=== PATIENT | male | born 1935 ===

== ENCOUNTER → 2017-05-26 | Outpatient (CLI) | payer MEDICARE ==
[~2017-05-26] MED LIST: ALPR.5 PO; ASPI81CH PO; ATOR20 PO; ATOR40TA PO; BICA50 PO; CHOL10002 PO; CLON.2 PO; DOCU100 PO; ENOX100I SC; FERR325 PO; FOLI1 PO; FURO40 PO; K-Dur10 MEQ; LEVSOD150 PO; LEVSOD50; LEVSOD75 PO; LOSARTAN-HCTZ1 EAC1 PO; LOSHYD100 PO; Lisinopril2.5 MG PO; Lovastatin20 MG PO; METF500 PO; METO25 PO; OMEP40CA12 PO; PRED5 PO; Potassium Chlo10 ME1 PO; TAMSULOSIN HCL0.4 MG PO; THIA100 PO; Vibramycin100 MG PO; ZYTIGA250 MG PO
== END ==
LOC: LAB SHORT 08:39 → PLD 08:39
DX: C44.629 Squamous cell carcinoma of skin of left upper limb, including shoulder (principal)
CPT/HCPCS: 88305

== ENCOUNTER 2017-06-19 07:45 | Inpatient (IN) | payer MEDICARE ==
[~2017-06-19] VITALS: Ht 180.3 cm; Wt 150.0 kg
[~2017-06-19 07:45] MED LIST changes: -ATOR20 PO; -FERR325 PO; +Ferrous Sulfat325 M2 PO; -LEVSOD75 PO; -METO25 PO; +METO50 PO; -OMEP40CA12 PO; +OMEPRAZOLE MAGN20 MG PO; +POTCHL20ER PO; -Potassium Chlo10 ME1 PO
[2017-06-19 08:34] LABS: BASOPHILS ABSOLUTE AUTO 0.02 K/mm3 (0.00-0.23); BASOPHILS PERCENT AUTO 0 % (0-2); EOSINOPHILS PERCENT AUTO 0 % (0-6); Hematocrit 34.6 % (37.0-53.0); Hemoglobin 11.2 g/dL (13.5-17.5); IMMATURE GRAN ABSOLUTE AUTO 0.09 K/mm3 (0.00-0.10); IMMATURE GRAN PERCENT AUTO 2 % (0-1); LYMPHOCYTES ABSOLUTE AUTO 0.52 K/mm3 (0.84-5.20); LYMPHOCYTES PERCENT AUTO 9 % (21-46); MONOCYTES ABSOLUTE AUTO 0.35 K/mm3 (0.16-1.47); MONOCYTES PERCENT AUTO 6 % (4-13); Mean Corpuscular HGB 33.8 pg (26.0-34.0); Mean Corpuscular HGB Conc 32.4 g/dL (31.5-36.5); Mean Corpuscular Volume 105 fL (80-100); Mean Platelet Volume 9.8 fL (9.1-12.4); NEUTROPHILS ABSOLUTE AUTO 4.72 K/mm3 (1.96-9.15); NEUTROPHILS PERCENT AUTO 83 % (41-73); Platelet Count 114 K/mm3 (150-400); RDW Coefficient Variation 15.9 % (11.7-14.2); Red Blood Cell Count 3.31 M/mm3 (4.30-5.90)
[2017-06-19 08:49] LABS: International Normalized Ratio 1.21; Prothrombin Time Results 12.7 Sec (9.7-11.5)
[2017-06-19 08:55] LABS: Albumin, Blood 3.2 g/dL (3.4-5.0); Albumin/Globulin Ratio 0.9 (0.8-1.8); Bun/Creatinine Ratio 16.8 (12.0-20.0); Calcium, Blood 8.6 mg/dL (8.5-10.1); Creatinine, Blood 1.49 mg/dL (0.60-1.20); Globulin, Blood 3.7 g/dL (2.2-4.0); Potassium, Blood 2.9 mmol/L (3.5-5.5); Total Protein, Blood 6.9 g/dL (6.4-8.2)
[2017-06-19] MEDS ORDERED: CLOP75 PO (15:28)
[2017-06-19] MEDS ORDERED: TAMS.4ER PO (15:29)
[2017-06-19] MEDS ORDERED: Amaryl2 MG PO (15:30)
[2017-06-20 04:51] LABS: Hematocrit 28.7 % (37.0-53.0); Hemoglobin 9.5 g/dL (13.5-17.5); Mean Corpuscular HGB 33.7 pg (26.0-34.0); Mean Corpuscular HGB Conc 33.1 g/dL (31.5-36.5); Mean Platelet Volume 10.1 fL (9.1-12.4); Platelet Count 82 K/mm3 (150-400); RDW Coefficient Variation 15.9 % (11.7-14.2); RDW Standard Deviation 58.9 fL (35.1-46.3); Red Blood Cell Count 2.82 M/mm3 (4.30-5.90); White Blood Cell Count 3.69 K/mm3 (4.00-11.30)
[2017-06-20 04:55] LABS: Mean Corpuscular Volume 102 fL (80-100)
[2017-06-20 05:06] LABS: Calcium, Blood 7.5 mg/dL (8.5-10.1); Creatinine, Blood 3.19 mg/dL (0.60-1.20); Potassium, Blood 4.3 mmol/L (3.5-5.5)
[2017-06-20 05:28] LABS: BAND PERCENT MAN 38 % (0-8); BASOPHILS PERCENT MAN 0 % (0-2); EOSINOPHILS PERCENT MAN 0 % (0-6); LYMPHOCYTES ABSOLUTE MAN 0.29 K/mm3 (0.84-5.20); LYMPHOCYTES PERCENT MAN 8 % (21-46); METAMYELOCYTE ABSOLUTE MAN 0.14 K/mm3 (0.00-0.00); METAMYELOCYTE PERCENT MAN 4 % (0-0); MONOCYTES ABSOLUTE MAN 0.14 K/mm3 (0.16-1.47); MONOCYTES PERCENT MAN 4 % (4-13); MYELOCYTE ABSOLUTE MAN 0.07 K/mm3 (0.00-0.00); MYELOCYTE PERCENT MAN 2 % (0-0); NEUTROPHILS ABSOLUTE MAN 3.02 K/mm3 (1.96-9.15); SEG NEUTROPHILS PERCENT MAN 44 % (41-73); TOTAL CELLS COUNTED 100
[2017-06-20] MEDS ORDERED: PRED5 PO (16:15)
[2017-06-20] MEDS ORDERED: ZYTIGA250 MG PO (16:17)
[2017-06-21 10:34] LABS: BASOPHILS ABSOLUTE AUTO 0.01 K/mm3 (0.00-0.23); BASOPHILS PERCENT AUTO 0 % (0-2); Hematocrit 24.3 % (37.0-53.0); LYMPHOCYTES ABSOLUTE AUTO 0.14 K/mm3 (0.84-5.20); LYMPHOCYTES PERCENT AUTO 6 % (21-46); MONOCYTES ABSOLUTE AUTO 0.26 K/mm3 (0.16-1.47); MONOCYTES PERCENT AUTO 11 % (4-13); Mean Corpuscular HGB 33.3 pg (26.0-34.0); Mean Corpuscular HGB Conc 32.9 g/dL (31.5-36.5); Mean Corpuscular Volume 101 fL (80-100); Mean Platelet Volume 9.7 fL (9.1-12.4); Platelet Count 85 K/mm3 (150-400); RDW Coefficient Variation 16.3 % (11.7-14.2); RDW Standard Deviation 60.5 fL (35.1-46.3); White Blood Cell Count 2.36 K/mm3 (4.00-11.30)
[2017-06-21 10:41] LABS: EOSINOPHILS ABSOLUTE AUTO 0.01 K/mm3 (0.00-0.68); EOSINOPHILS PERCENT AUTO 0 % (0-6); IMMATURE GRAN ABSOLUTE AUTO 0.02 K/mm3 (0.00-0.10); IMMATURE GRAN PERCENT AUTO 1 % (0-1); NEUTROPHILS ABSOLUTE AUTO 1.92 K/mm3 (1.96-9.15); NEUTROPHILS PERCENT AUTO 82 % (41-73)
[2017-06-21 13:38] LABS: Bun/Creatinine Ratio 9.3 (12.0-20.0); Calcium, Blood 7.3 mg/dL (8.5-10.1); Creatinine, Blood 5.27 mg/dL (0.60-1.20); Potassium, Blood 3.9 mmol/L (3.5-5.5)
[2017-06-22 15:34] LABS: Bun/Creatinine Ratio 11.4 (12.0-20.0); Calcium, Blood 7.4 mg/dL (8.5-10.1); Creatinine, Blood 5.6 mg/dL (0.60-1.20); Potassium, Blood 4.3 mmol/L (3.5-5.5)
[2017-06-23 06:04] LABS: Bun/Creatinine Ratio 12.6 (12.0-20.0); Calcium, Blood 7.5 mg/dL (8.5-10.1); Creatinine, Blood 5.8 mg/dL (0.60-1.20); Potassium, Blood 4.2 mmol/L (3.5-5.5)
[2017-06-23 15:47] LABS: Appearance, Urine Clear (Clear); Bilirubin, Urine Neg (Neg); Blood, Urine 4+ (Neg); Color, Urine Yellow (P-Yellow); Glucose Qualitative, Urine Neg (Neg); Ketones, Urine Neg (Neg); Leukocyte Esterase, Urine Neg (Neg); Nitrite, Urine Neg (Neg); Protein, Urine 2+ (Neg); Specific Gravity, Urine 1.015 (1.003-1.022); Urobilinogen, Urine NORM (Normal)
[2017-06-23 16:01] LABS: Hyaline Casts 0-2 /lpf (0-2); Red Blood Cells, Urine 0-2 /hpf (0-2); Squamous Epithelial Cells Not Seen /hpf (Few); White Blood Cells, Urine 0-2 /hpf (0-5)
[2017-06-23 16:02] LABS: Amorphous Light (0-Heavy); Bacteria Rare /hpf
[2017-06-24 05:16] LABS: Hemoglobin 9.1 g/dL (13.5-17.5); Mean Corpuscular HGB 33.1 pg (26.0-34.0); Mean Corpuscular HGB Conc 33.7 g/dL (31.5-36.5); Mean Platelet Volume 10.6 fL (9.1-12.4); Platelet Count 110 K/mm3 (150-400); RDW Coefficient Variation 15.1 % (11.7-14.2); Red Blood Cell Count 2.75 M/mm3 (4.30-5.90); White Blood Cell Count 2.84 K/mm3 (4.00-11.30)
[2017-06-24 05:18] LABS: Mean Corpuscular Volume 98 fL (80-100)
[2017-06-24 05:42] LABS: Alanine Aminotransfer (ALT/SGP 91 U/L (12-78); Albumin, Blood 2.4 g/dL (3.4-5.0); Albumin/Globulin Ratio 0.6 (0.8-1.8); Alk Phos 65 U/L (50-136); Anion Gap 13 mmol/L (6-16); Aspartate Aminotrans (AST/SGOT 193 U/L (12-37); Bilirubin, Total 0.3 mg/dL (0.1-1.0); Blood Urea Nitrogen 79 mg/dL (8-24); Bun/Creatinine Ratio 14.4 (12.0-20.0); CO2, Blood 19 mmol/L (21-32); Calcium, Blood 7.4 mg/dL (8.5-10.1); Chloride, Blood 112 mmol/L (98-108); Creatinine, Blood 5.47 mg/dL (0.60-1.20); Globulin, Blood 3.8 g/dL (2.2-4.0); Glomerular Filtration Rate 11 (60-); Glucose, Blood 111 mg/dL (70-99); Potassium, Blood 3.1 mmol/L (3.5-5.5); Sodium, Blood 144 mmol/L (136-145); Total Protein, Blood 6.2 g/dL (6.4-8.2); Uric Acid, Blood 11.1 mg/dL (3.5-7.2)
[2017-06-24 05:50] LABS: CPK Creatine Kinase 2268 U/L (39-308)
[2017-06-24 05:54] LABS: BASOPHILS ABSOLUTE MAN 0.02 K/mm3 (0.00-0.23); BASOPHILS PERCENT MAN 1 % (0-2); EOSINOPHILS ABSOLUTE MAN 0.02 K/mm3 (0.00-0.68); EOSINOPHILS PERCENT MAN 1 % (0-6); LYMPHOCYTES ABSOLUTE MAN 0.31 K/mm3 (0.84-5.20); LYMPHOCYTES PERCENT MAN 11 % (21-46); MONOCYTES ABSOLUTE MAN 0.05 K/mm3 (0.16-1.47); MONOCYTES PERCENT MAN 2 % (4-13); MYELOCYTE ABSOLUTE MAN 0.05 K/mm3 (0.00-0.00); MYELOCYTE PERCENT MAN 2 % (0-0); NEUTROPHILS ABSOLUTE MAN 2.35 K/mm3 (1.96-9.15); SEG NEUTROPHILS PERCENT MAN 83 % (41-73); TOTAL CELLS COUNTED 100
[2017-06-25 08:03] LABS: BASOPHILS PERCENT AUTO 0 % (0-2); EOSINOPHILS ABSOLUTE AUTO 0.03 K/mm3 (0.00-0.68); EOSINOPHILS PERCENT AUTO 2 % (0-6); Hematocrit 28.6 % (37.0-53.0); Hemoglobin 9.4 g/dL (13.5-17.5); IMMATURE GRAN ABSOLUTE AUTO 0.06 K/mm3 (0.00-0.10); IMMATURE GRAN PERCENT AUTO 3 % (0-1); LYMPHOCYTES ABSOLUTE AUTO 0.23 K/mm3 (0.84-5.20); LYMPHOCYTES PERCENT AUTO 12 % (21-46); MONOCYTES ABSOLUTE AUTO 0.15 K/mm3 (0.16-1.47); MONOCYTES PERCENT AUTO 8 % (4-13); Mean Corpuscular HGB 33.6 pg (26.0-34.0); Mean Corpuscular HGB Conc 32.9 g/dL (31.5-36.5); NEUTROPHILS ABSOLUTE AUTO 1.46 K/mm3 (1.96-9.15); NEUTROPHILS PERCENT AUTO 76 % (41-73); Platelet Count 145 K/mm3 (150-400); RDW Coefficient Variation 15.1 % (11.7-14.2); RDW Standard Deviation 56.5 fL (35.1-46.3); White Blood Cell Count 1.93 K/mm3 (4.00-11.30)
[2017-06-25 08:05] LABS: Mean Corpuscular Volume 102 fL (80-100)
[2017-06-25 08:30] LABS: Albumin, Blood 2.3 g/dL (3.4-5.0); Anion Gap 10 mmol/L (6-16); Blood Urea Nitrogen 69 mg/dL (8-24); Bun/Creatinine Ratio 16.2 (12.0-20.0); CO2, Blood 19 mmol/L (21-32); Calcium, Blood 7.2 mg/dL (8.5-10.1); Chloride, Blood 115 mmol/L (98-108); Creatinine, Blood 4.27 mg/dL (0.60-1.20); Glomerular Filtration Rate 14 (60-); Glucose, Blood 64 mg/dL (70-99); Phosphorus, Blood 3.7 mg/dL (2.5-4.9); Potassium, Blood 3.1 mmol/L (3.5-5.5); Sodium, Blood 144 mmol/L (136-145)
[2017-06-26 05:16] LABS: BASOPHILS ABSOLUTE AUTO 0.01 K/mm3 (0.00-0.23); BASOPHILS PERCENT AUTO 1 % (0-2); Hematocrit 27.7 % (37.0-53.0); Hemoglobin 8.9 g/dL (13.5-17.5); LYMPHOCYTES ABSOLUTE AUTO 0.25 K/mm3 (0.84-5.20); LYMPHOCYTES PERCENT AUTO 14 % (21-46); MONOCYTES ABSOLUTE AUTO 0.12 K/mm3 (0.16-1.47); MONOCYTES PERCENT AUTO 7 % (4-13); Mean Corpuscular HGB 32.4 pg (26.0-34.0); Mean Corpuscular HGB Conc 32.1 g/dL (31.5-36.5); Mean Corpuscular Volume 101 fL (80-100); Mean Platelet Volume 9.8 fL (9.1-12.4); Platelet Count 183 K/mm3 (150-400); RDW Coefficient Variation 15.1 % (11.7-14.2); RDW Standard Deviation 55.5 fL (35.1-46.3); Red Blood Cell Count 2.75 M/mm3 (4.30-5.90); White Blood Cell Count 1.76 K/mm3 (4.00-11.30)
[2017-06-26 05:21] LABS: EOSINOPHILS ABSOLUTE AUTO 0.03 K/mm3 (0.00-0.68); EOSINOPHILS PERCENT AUTO 2 % (0-6); IMMATURE GRAN ABSOLUTE AUTO 0.05 K/mm3 (0.00-0.10); IMMATURE GRAN PERCENT AUTO 3 % (0-1); NEUTROPHILS PERCENT AUTO 74 % (41-73)
[2017-06-26 05:32] LABS: Alanine Aminotransfer (ALT/SGP 53 U/L (12-78); Albumin, Blood 2.3 g/dL (3.4-5.0); Albumin/Globulin Ratio 0.6 (0.8-1.8); Alk Phos 63 U/L (50-136); Anion Gap 9 mmol/L (6-16); Aspartate Aminotrans (AST/SGOT 94 U/L (12-37); Bilirubin, Total 0.3 mg/dL (0.1-1.0); Blood Urea Nitrogen 55 mg/dL (8-24); Bun/Creatinine Ratio 16.6 (12.0-20.0); CO2, Blood 20 mmol/L (21-32); Calcium, Blood 6.9 mg/dL (8.5-10.1); Chloride, Blood 116 mmol/L (98-108); Creatinine, Blood 3.31 mg/dL (0.60-1.20); Globulin, Blood 3.6 g/dL (2.2-4.0); Glomerular Filtration Rate 19 (60-); Glucose, Blood 119 mg/dL (70-99); Magnesium, Blood 1.8 mg/dL (1.6-2.4); Phosphorus, Blood 3.4 mg/dL (2.5-4.9); Potassium, Blood 3.2 mmol/L (3.5-5.5); Sodium, Blood 145 mmol/L (136-145); Total Protein, Blood 5.9 g/dL (6.4-8.2)
[2017-06-27 07:00] LABS: Bun/Creatinine Ratio 16.5 (12.0-20.0); Calcium, Blood 7.2 mg/dL (8.5-10.1); Creatinine, Blood 2.49 mg/dL (0.60-1.20); Potassium, Blood 3.3 mmol/L (3.5-5.5)
[2017-06-28 04:09] LABS: BASOPHILS PERCENT AUTO 0 % (0-2); EOSINOPHILS ABSOLUTE AUTO 0.02 K/mm3 (0.00-0.68); EOSINOPHILS PERCENT AUTO 1 % (0-6); Hematocrit 26.5 % (37.0-53.0); Hemoglobin 8.4 g/dL (13.5-17.5); IMMATURE GRAN ABSOLUTE AUTO 0.05 K/mm3 (0.00-0.10); IMMATURE GRAN PERCENT AUTO 3 % (0-1); LYMPHOCYTES ABSOLUTE AUTO 0.32 K/mm3 (0.84-5.20); LYMPHOCYTES PERCENT AUTO 17 % (21-46); MONOCYTES ABSOLUTE AUTO 0.18 K/mm3 (0.16-1.47); MONOCYTES PERCENT AUTO 9 % (4-13); Mean Corpuscular HGB 32.6 pg (26.0-34.0); Mean Corpuscular HGB Conc 31.7 g/dL (31.5-36.5); Mean Corpuscular Volume 103 fL (80-100); Mean Platelet Volume 9.2 fL (9.1-12.4); NEUTROPHILS ABSOLUTE AUTO 1.34 K/mm3 (1.96-9.15); NEUTROPHILS PERCENT AUTO 70 % (41-73); Platelet Count 211 K/mm3 (150-400); RDW Coefficient Variation 15.1 % (11.7-14.2); Red Blood Cell Count 2.58 M/mm3 (4.30-5.90); White Blood Cell Count 1.91 K/mm3 (4.00-11.30)
[2017-06-28 04:29] LABS: Bun/Creatinine Ratio 15.1 (12.0-20.0); Calcium, Blood 7.1 mg/dL (8.5-10.1); Creatinine, Blood 1.99 mg/dL (0.60-1.20); Potassium, Blood 3.3 mmol/L (3.5-5.5)
[2017-06-28] MEDS ORDERED: AMOX250 PO (13:10)
[2017-06-28] MEDS ORDERED: CLOT10 SS (13:13)
[2017-06-28 17:07] LABS: A/G RATIO 1.1 (0.7-1.7); ALBUMIN 2.9 g/dL (2.9-4.4); ALPHA-1-GLOBULIN 0.3 g/dL (0.0-0.4); ALPHA-2-GLOBULIN 0.8 g/dL (0.4-1.0); BETA GLOBULIN 0.9 g/dL (0.7-1.3); GAMMA GLOBULIN 0.6 g/dL (0.4-1.8); GLOBULIN, TOTAL 2.7 g/dL (2.2-3.9); IMMUNOGLOBULIN A, QN, SERUM 246 mg/dL (61-437); IMMUNOGLOBULIN G, QN, SERUM 544 mg/dL (700-1600); IMMUNOGLOBULIN M, QN, SERUM 27 mg/dL (15-143); M-SPIKE Not Observed g/dL (Not Observed); PROTEIN, TOTAL, SERUM 5.6 g/dL (6.0-8.5)
== END 2017-06-28 14:32 | DRG 871 ==
LOC: DELPENDDIS → ER 07:45 → PCU 07:46 → MEDS 07:46 → PCU 14:01 → MEDS 14:05 → ENPENDDIS 06-22 10:00 → MEDS 06-22 21:12 → ENPENDDIS 06-28 10:51 → MEDS 06-28 14:32
PROVIDERS: Emergency Medicine; Hospitalist; Internal Medicine
DX: A41.9 Sepsis, unspecified organism (principal); J18.9 Pneumonia, unspecified organism; N17.0 Acute kidney failure with tubular necrosis; J96.01 Acute respiratory failure with hypoxia; R65.21 Severe sepsis with septic shock; C61 Malignant neoplasm of prostate; D50.9 Iron deficiency anemia, unspecified; K21.9 Gastro-esophageal reflux disease without esophagitis; N40.1 Benign prostatic hyperplasia with lower urinary tract symptoms; R33.8 Other retention of urine; I25.10 Atherosclerotic heart disease of native coronary artery without angina pectoris; E66.9 Obesity, unspecified; I12.9 Hypertensive chronic kidney disease with stage 1 through stage 4 chronic kidney disease, or unspecified chronic kidney disease; N18.3 Chronic kidney disease, stage 3 (moderate); E11.22 Type 2 diabetes mellitus with diabetic chronic kidney disease
CPT/HCPCS: 36415; 71046; 76770; 80048; 80053; 80069; 81001; 82550; 82784; 82947; 83605; 83735; 84100; 84165; 84550; 85025; 85610; 85730; 86334; 87040; 87081; 87493; 92610; 93005; 93010; 94640; 94760; 96361; 96365; 96375; 97110; 97116; 97163; 97530; 99285; G8978; G8979; G8996; G8997; G8998; J0456; J0696; J1650; J1815; J2405; J2543; J3480; J7030; J7050; J7120

== ENCOUNTER 2017-07-03 16:18 | Inpatient (IN) | payer MEDICARE ==
[~2017-07-03] VITALS: Ht 182.9 cm; Wt 95.9 kg
[~2017-07-03 16:18] MED LIST changes: +AMOX250 PO; +Amaryl2 MG PO; +CLOP75 PO; +CLOT10 SS; -METF500 PO; +METF500C PO; +TAMS.4ER PO
[2017-07-03 17:11] LABS: PCO2 Arterial 31.9 mmHg (35-45); PO2 Arterial 56.3 mmHg (80-100); pH Blood Arterial 7.42 (7.35-7.45)
[2017-07-03 17:27] LABS: Alanine Aminotransfer (ALT/SGP 20 U/L (12-78); Albumin, Blood 2.6 g/dL (3.4-5.0); Albumin/Globulin Ratio 0.7 (0.8-1.8); Alk Phos 66 U/L (50-136); Anion Gap 11 mmol/L (6-16); Aspartate Aminotrans (AST/SGOT 38 U/L (12-37); Bilirubin, Total 0.5 mg/dL (0.1-1.0); Blood Urea Nitrogen 12 mg/dL (8-24); Bun/Creatinine Ratio 11.1 (12.0-20.0); CO2, Blood 21 mmol/L (21-32); Calcium, Blood 7.4 mg/dL (8.5-10.1); Chloride, Blood 116 mmol/L (98-108); Creatinine, Blood 1.08 mg/dL (0.60-1.20); Globulin, Blood 3.7 g/dL (2.2-4.0); Glomerular Filtration Rate >60 (60-); Glucose, Blood 151 mg/dL (70-99); Hematocrit 27.1 % (37.0-53.0); Hemoglobin 8.5 g/dL (13.5-17.5); Mean Corpuscular HGB 32.3 pg (26.0-34.0); Mean Corpuscular HGB Conc 31.4 g/dL (31.5-36.5); Mean Corpuscular Volume 103 fL (80-100); Mean Platelet Volume 9.8 fL (9.1-12.4); Platelet Count 224 K/mm3 (150-400); Potassium, Blood 4.4 mmol/L (3.5-5.5); RDW Coefficient Variation 14.6 % (11.7-14.2); RDW Standard Deviation 55.1 fL (35.1-46.3); Red Blood Cell Count 2.63 M/mm3 (4.30-5.90); Sodium, Blood 148 mmol/L (136-145); Total Protein, Blood 6.3 g/dL (6.4-8.2); White Blood Cell Count 3.88 K/mm3 (4.00-11.30)
[2017-07-03 17:40] LABS: International Normalized Ratio 1.21; Prothrombin Time Results 12.7 Sec (9.7-11.5)
[2017-07-03 17:51] LABS: BAND PERCENT MAN 3 % (0-8); BASOPHILS PERCENT MAN 0 % (0-2); EOSINOPHILS ABSOLUTE MAN 0.03 K/mm3 (0.00-0.68); EOSINOPHILS PERCENT MAN 1 % (0-6); LYMPHOCYTES ABSOLUTE MAN 0.11 K/mm3 (0.84-5.20); LYMPHOCYTES PERCENT MAN 3 % (21-46); MONOCYTES ABSOLUTE MAN 0.03 K/mm3 (0.16-1.47); MONOCYTES PERCENT MAN 1 % (4-13); NEUTROPHILS ABSOLUTE MAN 3.68 K/mm3 (1.96-9.15); SEG NEUTROPHILS PERCENT MAN 92 % (41-73); TOTAL CELLS COUNTED 100
[2017-07-03 23:43] LABS: Source, Urine Catheter
[2017-07-03 23:45] LABS: Bilirubin, Urine Neg (Neg); Blood, Urine 2+ (Neg); Glucose Qualitative, Urine Neg (Neg); Ketones, Urine 1+ (Neg); Leukocyte Esterase, Urine Neg (Neg); Nitrite, Urine Neg (Neg); Protein, Urine 2+ (Neg); Specific Gravity, Urine 1.025 (1.003-1.022); Urobilinogen, Urine NORM (Normal)
[2017-07-03 23:50] LABS: Appearance, Urine Hazy (Clear); Color, Urine Yellow (P-Yellow)
[2017-07-03 23:51] LABS: Amorphous Light (0-Heavy); Bacteria Mod /hpf; Red Blood Cells, Urine 0-2 /hpf (0-2); Squamous Epithelial Cells Not Seen /hpf (Few); White Blood Cells, Urine 0-2 /hpf (0-5)
[2017-07-04 04:41] LABS: BASOPHILS ABSOLUTE AUTO 0.02 K/mm3 (0.00-0.23); BASOPHILS PERCENT AUTO 1 % (0-2); EOSINOPHILS ABSOLUTE AUTO 0.03 K/mm3 (0.00-0.68); EOSINOPHILS PERCENT AUTO 1 % (0-6); Hematocrit 25.6 % (37.0-53.0); IMMATURE GRAN ABSOLUTE AUTO 0.04 K/mm3 (0.00-0.10); IMMATURE GRAN PERCENT AUTO 1 % (0-1); LYMPHOCYTES ABSOLUTE AUTO 0.48 K/mm3 (0.84-5.20); LYMPHOCYTES PERCENT AUTO 17 % (21-46); MONOCYTES ABSOLUTE AUTO 0.27 K/mm3 (0.16-1.47); MONOCYTES PERCENT AUTO 10 % (4-13); Mean Corpuscular HGB Conc 31.3 g/dL (31.5-36.5); Mean Corpuscular Volume 102 fL (80-100); Mean Platelet Volume 9.9 fL (9.1-12.4); NEUTROPHILS ABSOLUTE AUTO 1.95 K/mm3 (1.96-9.15); NEUTROPHILS PERCENT AUTO 70 % (41-73); Platelet Count 206 K/mm3 (150-400); RDW Coefficient Variation 14.9 % (11.7-14.2); RDW Standard Deviation 56.2 fL (35.1-46.3); White Blood Cell Count 2.79 K/mm3 (4.00-11.30)
[2017-07-04 05:11] LABS: Anion Gap 8 mmol/L (6-16); Blood Urea Nitrogen 11 mg/dL (8-24); Bun/Creatinine Ratio 10.4 (12.0-20.0); CHOL/HDL RATIO 2.4; CO2, Blood 21 mmol/L (21-32); Calcium, Blood 7.3 mg/dL (8.5-10.1); Chloride, Blood 118 mmol/L (98-108); Cholesterol 98 mg/dL (50-200); Creatinine, Blood 1.06 mg/dL (0.60-1.20); Glomerular Filtration Rate >60 (60-); Glucose, Blood 87 mg/dL (70-99); HDL Cholesterol 40 mg/dL (>39); LDL/HDL RATIO 0.7; Low Density Lipoprotein Chol 29 mg/dL (0-110); Potassium, Blood 3.9 mmol/L (3.5-5.5); Sodium, Blood 147 mmol/L (136-145); Triglycerides 144 mg/dL (30-160); Very Low Density Lipoprot Chol 28 mg/dL (6-32)
[2017-07-05 05:14] LABS: Hematocrit 25.2 % (37.0-53.0); Mean Corpuscular HGB 31.9 pg (26.0-34.0); Mean Corpuscular HGB Conc 31.7 g/dL (31.5-36.5); Mean Corpuscular Volume 100 fL (80-100); Mean Platelet Volume 9.8 fL (9.1-12.4); Platelet Count 202 K/mm3 (150-400); RDW Coefficient Variation 14.6 % (11.7-14.2); RDW Standard Deviation 53.2 fL (35.1-46.3); Red Blood Cell Count 2.51 M/mm3 (4.30-5.90); White Blood Cell Count 3.17 K/mm3 (4.00-11.30)
[2017-07-05 05:30] LABS: Anion Gap 9 mmol/L (6-16); Blood Urea Nitrogen 12 mg/dL (8-24); Bun/Creatinine Ratio 9.8 (12.0-20.0); CO2, Blood 24 mmol/L (21-32); Calcium, Blood 7.5 mg/dL (8.5-10.1); Chloride, Blood 112 mmol/L (98-108); Creatinine, Blood 1.22 mg/dL (0.60-1.20); Glomerular Filtration Rate >60 (60-); Glucose, Blood 86 mg/dL (70-99); Magnesium, Blood 1.6 mg/dL (1.6-2.4); Potassium, Blood 3.2 mmol/L (3.5-5.5); Sodium, Blood 145 mmol/L (136-145)
[2017-07-05 21:18] LABS: Glucose, Blood 135 mg/dL (70-99)
[2017-07-06 05:21] LABS: Anion Gap 10 mmol/L (6-16); Blood Urea Nitrogen 11 mg/dL (8-24); Bun/Creatinine Ratio 9.3 (12.0-20.0); CO2, Blood 24 mmol/L (21-32); Calcium, Blood 7.5 mg/dL (8.5-10.1); Chloride, Blood 106 mmol/L (98-108); Creatinine, Blood 1.18 mg/dL (0.60-1.20); Glomerular Filtration Rate >60 (60-); Glucose, Blood 101 mg/dL (70-99); Potassium, Blood 3.2 mmol/L (3.5-5.5); Sodium, Blood 140 mmol/L (136-145)
[2017-07-06] MEDS ORDERED: METO25ER PO (12:19)
[2017-07-06] MEDS ORDERED: PANT40 PO (12:23)
[2017-07-06] MEDS ORDERED: ASPI81CH PO (12:24)
[2017-07-06] MEDS ORDERED: DOCU100 PO (12:24)
[2017-07-06] MEDS ORDERED: INSU100I6 (12:25)
[2017-07-06] MEDS ORDERED: LEVO750 PO (12:26)
[2017-07-06] MEDS ORDERED: SPIR25 PO (12:26)
[2017-07-06] MEDS ORDERED: LOSA25 PO (12:26)
[2017-07-06] MEDS ORDERED: MAGOXI400 PO (12:26)
[2017-07-06] MEDS ORDERED: TORSE20 PO (12:27)
== END 2017-07-06 16:59 | disposition home health service (06) | DRG 871 ==
LOC: ER 16:18 → MEDS 18:14 → ENPENDDIS 07-06 12:00 → MEDS 07-06 16:59
PROVIDERS: Family Medicine; Internal Medicine; Internal Medicine Cardiovascular Disease; Physician Assistant
DX: A41.9 Sepsis, unspecified organism (principal); J18.9 Pneumonia, unspecified organism; G93.41 Metabolic encephalopathy; I50.23 Acute on chronic systolic (congestive) heart failure; J96.01 Acute respiratory failure with hypoxia; E87.0 Hyperosmolality and hypernatremia; M62.82 Rhabdomyolysis; R65.20 Severe sepsis without septic shock; I11.0 Hypertensive heart disease with heart failure; I25.5 Ischemic cardiomyopathy; E11.9 Type 2 diabetes mellitus without complications; C61 Malignant neoplasm of prostate; D64.9 Anemia, unspecified; I25.10 Atherosclerotic heart disease of native coronary artery without angina pectoris; I34.0 Nonrheumatic mitral (valve) insufficiency; E78.5 Hyperlipidemia, unspecified; E03.9 Hypothyroidism, unspecified; Z79.84 Long term (current) use of oral hypoglycemic drugs; Z79.02 Long term (current) use of antithrombotics/antiplatelets; Z79.52 Long term (current) use of systemic steroids; Z79.899 Other long term (current) drug therapy; Z87.891 Personal history of nicotine dependence; Z86.718 Personal history of other venous thrombosis and embolism; I25.2 Old myocardial infarction; Z95.5 Presence of coronary angioplasty implant and graft
CPT/HCPCS: 36415; 36600; 51702; 70450; 71045; 80048; 80053; 80061; 81001; 82803; 82947; 83605; 83735; 83880; 84484; 85025; 85027; 85610; 87040; 87086; 93005; 93010; 93306; 96374; 97116; 97162; 97530; 99285; C9113; G8978; G8979; G8980; J0713; J1650; J1940; J1956; J2310; J2405; J3475; J7030; J7070

== ENCOUNTER 2017-07-09 19:16 | Inpatient (IN) | payer MEDICARE ==
[~2017-07-09] VITALS: Ht 180.3 cm; Wt 92.3 kg
[~2017-07-09 19:16] MED LIST changes: +INSU100I6; +LEVO750 PO; +LOSA25 PO; +MAGOXI400 PO; +METO25ER PO; +PANT40 PO; +SPIR25 PO; +TORSE20 PO
[2017-07-09 20:04] LABS: BASOPHILS ABSOLUTE AUTO 0.01 K/mm3 (0.00-0.23); BASOPHILS PERCENT AUTO 0 % (0-2); EOSINOPHILS ABSOLUTE AUTO 0.04 K/mm3 (0.00-0.68); EOSINOPHILS PERCENT AUTO 1 % (0-6); Hematocrit 28.4 % (37.0-53.0); Hemoglobin 9.2 g/dL (13.5-17.5); IMMATURE GRAN ABSOLUTE AUTO 0.06 K/mm3 (0.00-0.10); IMMATURE GRAN PERCENT AUTO 2 % (0-1); LYMPHOCYTES ABSOLUTE AUTO 0.34 K/mm3 (0.84-5.20); LYMPHOCYTES PERCENT AUTO 12 % (21-46); MONOCYTES ABSOLUTE AUTO 0.22 K/mm3 (0.16-1.47); MONOCYTES PERCENT AUTO 8 % (4-13); Mean Corpuscular HGB 31.7 pg (26.0-34.0); Mean Corpuscular HGB Conc 32.4 g/dL (31.5-36.5); NEUTROPHILS ABSOLUTE AUTO 2.25 K/mm3 (1.96-9.15); NEUTROPHILS PERCENT AUTO 77 % (41-73); RDW Coefficient Variation 14.3 % (11.7-14.2); RDW Standard Deviation 51.8 fL (35.1-46.3); White Blood Cell Count 2.92 K/mm3 (4.00-11.30)
[2017-07-09 20:06] LABS: Mean Corpuscular Volume 98 fL (80-100); Mean Platelet Volume 10.2 fL (9.1-12.4); Platelet Count 160 K/mm3 (150-400)
[2017-07-09 20:17] LABS: Albumin, Blood 3.2 g/dL (3.4-5.0); Albumin/Globulin Ratio 0.8 (0.8-1.8); Bilirubin, Total 0.3 mg/dL (0.1-1.0); Bun/Creatinine Ratio 12.2 (12.0-20.0); Calcium, Blood 8.5 mg/dL (8.5-10.1); Creatinine, Blood 1.23 mg/dL (0.60-1.20); Potassium, Blood 4.1 mmol/L (3.5-5.5); Total Protein, Blood 7.2 g/dL (6.4-8.2)
[2017-07-09 21:13] LABS: Source, Urine Clean Catch
[2017-07-09 21:19] LABS: Appearance, Urine Clear (Clear); Bilirubin, Urine Neg (Neg); Blood, Urine 3+ (Neg); Color, Urine Yellow (P-Yellow); Glucose Qualitative, Urine Neg (Neg); Ketones, Urine Neg (Neg); Leukocyte Esterase, Urine 1+ (Neg); Nitrite, Urine Neg (Neg); Protein, Urine 2+ (Neg); Specific Gravity, Urine 1.015 (1.003-1.022); Urobilinogen, Urine NORM (Normal)
[2017-07-09 21:28] LABS: Amorphous Light (0-Heavy); Bacteria Few /hpf; Granular Casts 0-2 /lpf (0); Red Blood Cells, Urine 0-2 /hpf (0-2); Squamous Epithelial Cells Few /hpf (Few)
[2017-07-10 05:22] LABS: Anion Gap 9 mmol/L (6-16); Blood Urea Nitrogen 13 mg/dL (8-24); Bun/Creatinine Ratio 11.4 (12.0-20.0); CO2, Blood 25 mmol/L (21-32); Chloride, Blood 109 mmol/L (98-108); Creatinine, Blood 1.14 mg/dL (0.60-1.20); Glomerular Filtration Rate >60 (60-); Glucose, Blood 64 mg/dL (70-99); Potassium, Blood 3.9 mmol/L (3.5-5.5); Sodium, Blood 143 mmol/L (136-145)
[2017-07-11] MEDS ORDERED: INSDET100 SC (10:27)
[2017-07-11] MEDS ORDERED: PROM25 PO (12:07)
== END 2017-07-11 12:49 | disposition home or self-care (01) | DRG 637 ==
LOC: ER 19:16 → PCU 19:17 → MEDS 23:12 → PCU 23:36 → MEDS 07-10 18:24 → ENPENDDIS 07-11 09:00 → MEDS 07-11 12:49
PROVIDERS: Emergency Medicine; Internal Medicine
DX: E11.649 Type 2 diabetes mellitus with hypoglycemia without coma (principal); J18.9 Pneumonia, unspecified organism; I50.22 Chronic systolic (congestive) heart failure; I11.0 Hypertensive heart disease with heart failure; Z86.718 Personal history of other venous thrombosis and embolism; E03.9 Hypothyroidism, unspecified; E78.5 Hyperlipidemia, unspecified; I25.10 Atherosclerotic heart disease of native coronary artery without angina pectoris; I25.2 Old myocardial infarction; T37.8X5A Adverse effect of other specified systemic anti-infectives and antiparasitics, initial encounter; T38.3X5A Adverse effect of insulin and oral hypoglycemic [antidiabetic] drugs, initial encounter
CPT/HCPCS: 36415; 71046; 80048; 80053; 81001; 82947; 83605; 85025; 87040; 87077; 87086; 87186; 93005; 93010; 99285; J1650; J1956; J2543; J7030

== ENCOUNTER → 2017-08-31 | Outpatient (CLI) | payer MEDICARE, SELFPAY ==
[~2017-08-31] MED LIST changes: +INSDET100 SC; +PROM25 PO
== END | disposition home or self-care (01) ==
LOC: PLD 08:24 → LAB SHORT 08:24
DX: D04.61 Carcinoma in situ of skin of right upper limb, including shoulder (principal)
CPT/HCPCS: 88305

== ENCOUNTER → 2017-11-09 | Outpatient (CLI) | payer MEDICARE, OTHER, SELFPAY | END | disposition home or self-care (01) | LOC: PLD 14:44 → LAB SHORT 14:44 | DX: C44.629 Squamous cell carcinoma of skin of left upper limb, including shoulder (principal) | CPT/HCPCS: 88305 ==

== ENCOUNTER → 2018-05-17 | Outpatient (CLI) | payer MEDICARE, OTHER | END | disposition home or self-care (01) | LOC: PLD 14:00 → LAB SHORT 14:00 | DX: D04.62 Carcinoma in situ of skin of left upper limb, including shoulder (principal); D04.61 Carcinoma in situ of skin of right upper limb, including shoulder; C44.529 Squamous cell carcinoma of skin of other part of trunk | CPT/HCPCS: 88305 ==

== ENCOUNTER → 2018-06-23 | Outpatient (CLI) | payer MEDICARE, OTHER | END | disposition home or self-care (01) | LOC: LAB SHORT 08:32 → PLD 08:32 | DX: D04.62 Carcinoma in situ of skin of left upper limb, including shoulder (principal) | CPT/HCPCS: 88305 ==

== ENCOUNTER 2018-08-21 11:05 | Emergency (ER) | payer MEDICARE, OTHER ==
[~2018-08-21] VITALS: Ht 195.6 cm; Wt 75.8 kg
[2018-08-21 11:33] LABS: BASOPHILS ABSOLUTE AUTO 0.02 K/mm3 (0.00-0.23); BASOPHILS PERCENT AUTO 1 % (0-2); EOSINOPHILS ABSOLUTE AUTO 0.08 K/mm3 (0.00-0.68); EOSINOPHILS PERCENT AUTO 2 % (0-6); Hematocrit 34.9 % (37.0-53.0); Hemoglobin 11.1 g/dL (13.5-17.5); IMMATURE GRAN ABSOLUTE AUTO 0.01 K/mm3 (0.00-0.10); IMMATURE GRAN PERCENT AUTO 0 % (0-1); LYMPHOCYTES ABSOLUTE AUTO 0.72 K/mm3 (0.84-5.20); LYMPHOCYTES PERCENT AUTO 16 % (21-46); MONOCYTES ABSOLUTE AUTO 0.32 K/mm3 (0.16-1.47); MONOCYTES PERCENT AUTO 7 % (4-13); Mean Corpuscular HGB 27.6 pg (26.0-34.0); Mean Corpuscular HGB Conc 31.8 g/dL (31.5-36.5); Mean Corpuscular Volume 87 fL (80-100); Mean Platelet Volume 9.4 fL (9.1-12.4); NEUTROPHILS ABSOLUTE AUTO 3.23 K/mm3 (1.96-9.15); NEUTROPHILS PERCENT AUTO 74 % (41-73); Platelet Count 213 K/mm3 (150-400); RDW Coefficient Variation 13.3 % (11.7-14.2); RDW Standard Deviation 42.3 fL (35.1-46.3); Red Blood Cell Count 4.02 M/mm3 (4.30-5.90); White Blood Cell Count 4.38 K/mm3 (4.00-11.30)
[2018-08-21 12:09] LABS: Alanine Aminotransfer (ALT/SGP <6 U/L (12-78); Albumin, Blood 3.4 g/dL (3.4-5.0); Albumin/Globulin Ratio 0.9 (0.8-1.8); Alk Phos 103 U/L (50-136); Anion Gap 7 mmol/L (6-16); Aspartate Aminotrans (AST/SGOT 11 U/L (12-37); Bilirubin, Total 0.5 mg/dL (0.1-1.0); Blood Urea Nitrogen 16 mg/dL (8-24); Bun/Creatinine Ratio 20.3 (12.0-20.0); CO2, Blood 26 mmol/L (21-32); Calcium, Blood 8.6 mg/dL (8.5-10.1); Chloride, Blood 106 mmol/L (98-108); Creatinine, Blood 0.79 mg/dL (0.60-1.20); Globulin, Blood 3.8 g/dL (2.2-4.0); Glomerular Filtration Rate >60 (60-); Glucose, Blood 122 mg/dL (70-99); Potassium, Blood 3.8 mmol/L (3.5-5.5); Sodium, Blood 139 mmol/L (136-145); Total Protein, Blood 7.2 g/dL (6.4-8.2)
[2018-08-21] MEDS ORDERED: ASCO500 PO (12:14)
[2018-08-21] MEDS ORDERED: FERSU300 PO (12:15)
[2018-08-21] MEDS ORDERED: CARV3.125 PO (12:15)
[2018-08-21] MEDS ORDERED: DOXY100 PO (12:16)
[2018-08-21] MEDS ORDERED: Mupirocin22 GM TD (12:21)
[2018-08-21] MEDS ORDERED: CHLORHEXIDINE FL1 ML TD (12:23)
[2018-08-21] MEDS ORDERED: OXYC5 PO (12:23)
[2018-08-21] MEDS ORDERED: ONDA4ODT MM (12:23)
[2018-08-21] MEDS ORDERED: Augmentin 875-1 EACH PO ×2 (14:13→14:34)
== END 2018-08-21 14:41 | disposition home or self-care (01) ==
LOC: ER 11:05
PROVIDERS: Emergency Medicine
DX: K57.32 Diverticulitis of large intestine without perforation or abscess without bleeding (principal); Z79.899 Other long term (current) drug therapy; Z79.84 Long term (current) use of oral hypoglycemic drugs; Z79.52 Long term (current) use of systemic steroids; Z79.82 Long term (current) use of aspirin; Z79.4 Long term (current) use of insulin
CPT/HCPCS: 36415; 74177; 80053; 83690; 85025; 96361-59; 96374-59; 96375-59; 99284-25; J1170; J2405; J7030; Q9967

== ENCOUNTER → 2018-10-11 | Outpatient (CLI) | payer MEDICARE, OTHER ==
[~2018-10-11] MED LIST changes: +ASCO500 PO; +ATORVASTATIN CA40 MG PO; +AZIT250 PO; +Augmentin 875-1 EACH PO; +CARV3.125 PO; +CHLORHEXIDINE FL1 ML TD; +DOXY100 PO; +EUTHYROX150 MCG PO; +FERSU300 PO; +FURO20; +LISI5 PO; +METF500 PO; +MIRALAX17 GM PO; +Mupirocin22 GM TD; +ONDA4 PO; +ONDA4ODT MM; +OXYC5 PO; +Potassium Chlo20 ME1 PO; +XTANDI40 MG PO
== END | disposition home or self-care (01) ==
LOC: PLD 14:23 → LAB SHORT 14:23
DX: C44.529 Squamous cell carcinoma of skin of other part of trunk (principal)
CPT/HCPCS: 88305

== ENCOUNTER 2018-11-01 14:19 | Inpatient (IN) | payer MEDICARE, OTHER ==
[~2018-11-01] VITALS: Ht 172.7 cm; Wt 71.5 kg
[~2018-11-01 14:19] MED LIST changes: -ATORVASTATIN CA40 MG PO; -AZIT250 PO; -EUTHYROX150 MCG PO; -FURO20; -LISI5 PO; -METF500 PO; -MIRALAX17 GM PO; -ONDA4 PO; -Potassium Chlo20 ME1 PO; -XTANDI40 MG PO
[2018-11-01] MEDS ORDERED: FURO20 (15:17)
[2018-11-01] MEDS ORDERED: XTANDI40 MG PO (15:17)
[2018-11-01] MEDS ORDERED: ATORVASTATIN CA40 MG PO (15:17)
[2018-11-01] MEDS ORDERED: TAMS.4ER PO (15:17)
[2018-11-01] MEDS ORDERED: Potassium Chlo20 ME1 PO (15:18)
[2018-11-01] MEDS ORDERED: EUTHYROX150 MCG PO (15:18)
[2018-11-01 15:27] LABS: BASOPHILS ABSOLUTE AUTO 0.02 K/mm3 (0.00-0.23); BASOPHILS PERCENT AUTO 1 % (0-2); EOSINOPHILS ABSOLUTE AUTO 0.05 K/mm3 (0.00-0.68); EOSINOPHILS PERCENT AUTO 2 % (0-6); Hematocrit 32.5 % (37.0-53.0); Hemoglobin 10.2 g/dL (13.5-17.5); IMMATURE GRAN ABSOLUTE AUTO 0.01 K/mm3 (0.00-0.10); IMMATURE GRAN PERCENT AUTO 0 % (0-1); LYMPHOCYTES ABSOLUTE AUTO 0.57 K/mm3 (0.84-5.20); LYMPHOCYTES PERCENT AUTO 21 % (21-46); MONOCYTES ABSOLUTE AUTO 0.34 K/mm3 (0.16-1.47); MONOCYTES PERCENT AUTO 12 % (4-13); Mean Corpuscular HGB 28.6 pg (26.0-34.0); Mean Corpuscular HGB Conc 31.4 g/dL (31.5-36.5); Mean Corpuscular Volume 91 fL (80-100); Mean Platelet Volume 10.2 fL (9.1-12.4); NEUTROPHILS ABSOLUTE AUTO 1.75 K/mm3 (1.96-9.15); NEUTROPHILS PERCENT AUTO 64 % (41-73); Platelet Count 128 K/mm3 (150-400); RDW Standard Deviation 54.2 fL (35.1-46.3); Red Blood Cell Count 3.57 M/mm3 (4.30-5.90); White Blood Cell Count 2.74 K/mm3 (4.00-11.30)
[2018-11-01 15:40] LABS: Alanine Aminotransfer (ALT/SGP 7 U/L (12-78); Albumin, Blood 3.4 g/dL (3.4-5.0); Albumin/Globulin Ratio 1.1 (0.8-1.8); Alk Phos 88 U/L (50-136); Anion Gap 5 mmol/L (6-16); Aspartate Aminotrans (AST/SGOT 13 U/L (12-37); Bilirubin, Total 0.6 mg/dL (0.1-1.0); Blood Urea Nitrogen 16 mg/dL (8-24); Bun/Creatinine Ratio 26.5 (12.0-20.0); CO2, Blood 23 mmol/L (21-32); Calcium, Blood 8.6 mg/dL (8.5-10.1); Chloride, Blood 115 mmol/L (98-108); Globulin, Blood 3.2 g/dL (2.2-4.0); Glomerular Filtration Rate >60 (60-); Glucose, Blood 113 mg/dL (70-99); Sodium, Blood 143 mmol/L (136-145); Total Protein, Blood 6.6 g/dL (6.4-8.2); Troponin I <0.015 ng/mL (0.000-0.040)
[2018-11-01 15:43] LABS: Source, Urine Clean Catch
[2018-11-01 15:52] LABS: Bilirubin, Urine Neg (Neg); Blood, Urine 1+ (Neg); Glucose Qualitative, Urine Neg (Neg); Ketones, Urine 1+ (Neg); Leukocyte Esterase, Urine 1+ (Neg); Nitrite, Urine Neg (Neg); Protein, Urine 1+ (Neg); Urobilinogen, Urine NORM (Normal)
[2018-11-01 15:57] LABS: Appearance, Urine Clear (Clear); Color, Urine Yellow (P-Yellow)
[2018-11-01 15:58] LABS: Bacteria Few /hpf; Squamous Epithelial Cells Few /hpf (Few)
[2018-11-01] MEDS ORDERED: METF500 PO (20:24)
[2018-11-01] MEDS ORDERED: ONDA4 PO (20:24)
[2018-11-01] MEDS ORDERED: DOCU100 PO (20:24)
[2018-11-01] MEDS ORDERED: CARV3.125 PO (20:24)
[2018-11-01] MEDS ORDERED: OXYC5 PO (20:25)
[2018-11-01] MEDS ORDERED: ASCO500 PO (20:25)
[2018-11-01] MEDS ORDERED: FERSU300 PO (20:26)
[2018-11-02 01:08] LABS: Adenovirus Not Detected (NOT DETECT); Bordetella pertussis Not Detected (NOT DETECT); Chlamydophila pneumoniae Not Detected (NOT DETECT); Coronavirus 229E Not Detected (NOT DETECT); Coronavirus HKU1 Not Detected (NOT DETECT); Coronavirus NL63 Not Detected (NOT DETECT); Coronavirus OC43 Not Detected (NOT DETECT); Human Metapneumovirus Not Detected (NOT DETECT); Human Rhinovirus/Enterovirus Not Detected (NOT DETECT); Influenza A Not Detected (NOT DETECT); Influenza A/2009-H1 Not Detected (NOT DETECT); Influenza A/H1 Not Detected (NOT DETECT); Influenza A/H3 Not Detected (NOT DETECT); Influenza B Not Detected (NOT DETECT); Mycoplasma pneumoniae Not Detected (NOT DETECT); Parainfluenza Virus 1 Not Detected (NOT DETECT); Parainfluenza Virus 2 Not Detected (NOT DETECT); Parainfluenza Virus 3 Not Detected (NOT DETECT); Parainfluenza Virus 4 Not Detected (NOT DETECT); Respiratory Syncytial Virus Not Detected (NOT DETECT)
--- NOTE | 2018-11-02 03:58 | NUR ---
SHIFT SUMMARY PT ARRIVED TO THE FLOOR WITHOUT INCIDENT VIA WHEELCHAIR. PT ABLE TO AMBULATE TO THE BED A STANDBY ASSIST. NO COMPLAINTS OF PAIN OR SOB DURING THE SHIFT. PT ALERT AND ORIENTED. NS RUNNING ORDERED. NO OTHER COMPLAINTS AT THIS TIME, WILL CONTINUE TO MONITOR.
[2018-11-02 04:25] LABS: Hematocrit 30.1 % (37.0-53.0); Hemoglobin 9.6 g/dL (13.5-17.5); Mean Corpuscular HGB 28.9 pg (26.0-34.0); Mean Corpuscular HGB Conc 31.9 g/dL (31.5-36.5); Mean Corpuscular Volume 91 fL (80-100); Platelet Count 109 K/mm3 (150-400); RDW Standard Deviation 53.4 fL (35.1-46.3); Red Blood Cell Count 3.32 M/mm3 (4.30-5.90); White Blood Cell Count 2.69 K/mm3 (4.00-11.30)
[2018-11-02 04:51] LABS: Alanine Aminotransfer (ALT/SGP <6 U/L (12-78); Albumin, Blood 3.1 g/dL (3.4-5.0); Albumin/Globulin Ratio 1.1 (0.8-1.8); Alk Phos 78 U/L (50-136); Anion Gap 8 mmol/L (6-16); Aspartate Aminotrans (AST/SGOT 8 U/L (12-37); Bilirubin, Total 0.6 mg/dL (0.1-1.0); Blood Urea Nitrogen 13 mg/dL (8-24); Bun/Creatinine Ratio 20.2 (12.0-20.0); CO2, Blood 22 mmol/L (21-32); Calcium, Blood 8.1 mg/dL (8.5-10.1); Chloride, Blood 114 mmol/L (98-108); Creatinine, Blood 0.64 mg/dL (0.60-1.20); Globulin, Blood 2.9 g/dL (2.2-4.0); Glomerular Filtration Rate >60 (60-); Glucose, Blood 123 mg/dL (70-99); Potassium, Blood 3.6 mmol/L (3.5-5.5); Sodium, Blood 144 mmol/L (136-145)
--- NOTE | 2018-11-02 18:43 | NUR ---
PT. BACK IN BED AFTER EATING DINNER AND GOING TO BR. HAS DENIED N/V/PAIN T/O THIS SHIFT. GOT DIETARY TO ADD ENSURE TO HIS MEALS, HAS NO LOWER TEETH. PT. TAKES MEDS WITH VANILLA ENSURE ONLY TAKING THEM WITH WATER CAUSES NAUSEA. NO NOTEABLE CHAANGES THIS SHIFT.
--- NOTE | 2018-11-03 07:00 | NUR ---
ASSUMED CARE OF PT- BEDSIDE REPORT COMPLETED PT A LITTLE QAGAN TAYAGUNGIN AND DID NOT WAKE TO STAFF VOICES. PER REPORT PT ALERT AND ORIENTED. 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 ON ASSESSMENT PT DENIES PAIN, WILL CTM.
--- NOTE | 2018-11-03 07:32 | NUR ---
SHIFT SUMMARY PT ALERT, ORIENTED, AND 1X ASSIST. PT HAD NO COMPLAINTS OF SOB. PAIN MEDICATION GIVEN PER APR. PT HAD GOOD URINE OUTPUT THIS SHIFT, THOUGH URINE CONTINUES TO BE MALODOROUS. NO OTHER COMPLAINTS AT THIS TIME. WILL CONTINUE TO MONITOR.
--- NOTE | 2018-11-03 18:25 | NUR ---
SHIFT SUMMARY- PT CONTINUES ON IV ABX AT THIS TIME, PT ASKED ABOUT DISCHARGE MULTIPLE TIMES T/O THE SHIFT NO PLAN TO DC WAS MENTIONED BY DR GONZALES. PT ALERT AND ORIENTED ONE PERSON SBA TO THE BATHROOM. PT CALLS APPROPRIATELY, NO ACUTE CHANGES T/O THE SHIFT.
--- NOTE | 2018-11-04 03:03 | NUR ---
SHIFT SUMMARY PT IS ALERT, ORIENTED, AND STANDBY ASSIST. PT RECIEVED ORDERED PAIN MEDS PER APR. NO COMPLAINTS OF SOB. LUNG SOUNDS CONTINUE TO BE DIMINISHED IN THE BASES. PT'S URINE IS MALODEROUS ALSO. CONTACT PRECAUTIONS MAINTAINED. NO OTHER COMPLAINTS FROM PT AT THIS TIME. WILL CONTINUE TO MONITOR.
[2018-11-04 04:55] LABS: BASOPHILS ABSOLUTE AUTO 0.02 K/mm3 (0.00-0.23); BASOPHILS PERCENT AUTO 1 % (0-2); EOSINOPHILS ABSOLUTE AUTO 0.08 K/mm3 (0.00-0.68); EOSINOPHILS PERCENT AUTO 3 % (0-6); Hematocrit 29.3 % (37.0-53.0); Hemoglobin 9.2 g/dL (13.5-17.5); IMMATURE GRAN ABSOLUTE AUTO 0.01 K/mm3 (0.00-0.10); IMMATURE GRAN PERCENT AUTO 0 % (0-1); LYMPHOCYTES ABSOLUTE AUTO 0.49 K/mm3 (0.84-5.20); LYMPHOCYTES PERCENT AUTO 17 % (21-46); MONOCYTES ABSOLUTE AUTO 0.29 K/mm3 (0.16-1.47); MONOCYTES PERCENT AUTO 10 % (4-13); Mean Corpuscular HGB 27.9 pg (26.0-34.0); Mean Corpuscular HGB Conc 31.4 g/dL (31.5-36.5); Mean Corpuscular Volume 89 fL (80-100); Mean Platelet Volume 9.8 fL (9.1-12.4); NEUTROPHILS ABSOLUTE AUTO 1.92 K/mm3 (1.96-9.15); NEUTROPHILS PERCENT AUTO 68 % (41-73); Platelet Count 106 K/mm3 (150-400); RDW Coefficient Variation 16.3 % (11.7-14.2); RDW Standard Deviation 53.1 fL (35.1-46.3); White Blood Cell Count 2.81 K/mm3 (4.00-11.30)
[2018-11-04 05:20] LABS: Alanine Aminotransfer (ALT/SGP 8 U/L (12-78); Alk Phos 80 U/L (50-136); Anion Gap 7 mmol/L (6-16); Aspartate Aminotrans (AST/SGOT 16 U/L (12-37); Bilirubin, Total 0.4 mg/dL (0.1-1.0); Blood Urea Nitrogen 18 mg/dL (8-24); Bun/Creatinine Ratio 26.4 (12.0-20.0); CO2, Blood 23 mmol/L (21-32); Calcium, Blood 8.5 mg/dL (8.5-10.1); Chloride, Blood 114 mmol/L (98-108); Creatinine, Blood 0.68 mg/dL (0.60-1.20); Globulin, Blood 2.9 g/dL (2.2-4.0); Glomerular Filtration Rate >60 (60-); Glucose, Blood 125 mg/dL (70-99); Sodium, Blood 144 mmol/L (136-145); Total Protein, Blood 5.9 g/dL (6.4-8.2)
[2018-11-04] MEDS ORDERED: AZIT250 PO (17:07)
--- NOTE | 2018-11-04 18:30 | NUR ---
SHIFT SUMMARY PT SITTING UP TO EOB, DURING SHIFT REPORT. PLEASANT, BUT APPEARING WEAK. REQUESTED ASSIST TO BTHRM. SBA WITH FWW. ADMITTED FOR LLL PNM AND UTI. 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 PT ATTEMPTED TO EAT BREAKFAST BUT SOON C/O NAUSEA; MEDICATED WITH ZOFRAN PER EMAR. PT REPORTED IT EFFECTIVE. PT REPORTED THAT SOMETIMES HE IS ABLE TO EAT W/O DIFFICUTLY AND OTHER TIMES CANNOT TOLERATE. REPORTS WT LOSS. PT ABLE TO WORK WITH PT AND WALK IN HALLS. PT THEN C/O BLOATING AND "NOT FEELING WELL TODAY", C/O CONSTIPATION; BOWEL CARE GIVEN. PT OFFERED MOM, BUT DECLINED. SOON ASSISTED TO BTHRM HAVING LRG HARD FORMED STOOL. PT FELT MUCH BETTER AND DENIED ANY FURTHER C/O NAUSEA. DR GONZALES IN TO SEE PT. D/C ORDERS GIVEN. O/T ASSISTED PT WITH GETTING DRESSED. PT'S SON TO AND ASSISTED PT HOME. D/C INSTRUCTIONS GIVEN WITH [facility]. PT VERBALIZED UNDERSTANDING. ASSISTED OUT TO CAR BY COMPUTER PROCESSING SCHEDULER VIA W/C.
== END 2018-11-04 17:25 | disposition home or self-care (01) | DRG 194 ==
LOC: ER 14:19 → MEDS 20:28
PROVIDERS: Internal Medicine; Physician Assistant; ADMIT Internal Medicine
DX: J18.1 Lobar pneumonia, unspecified organism (principal); C79.51 Secondary malignant neoplasm of bone; I50.22 Chronic systolic (congestive) heart failure; I25.10 Atherosclerotic heart disease of native coronary artery without angina pectoris; I25.2 Old myocardial infarction; E78.5 Hyperlipidemia, unspecified; E03.9 Hypothyroidism, unspecified; E86.0 Dehydration; C61 Malignant neoplasm of prostate; Z86.718 Personal history of other venous thrombosis and embolism; Z66 Do not resuscitate; E11.649 Type 2 diabetes mellitus with hypoglycemia without coma; R26.89 Other abnormalities of gait and mobility; K59.00 Constipation, unspecified
CPT/HCPCS: 0099U; 36415; 70450; 71046; 74176; 80053; 81001; 82947; 83605; 83880; 84484; 85025; 85027; 87040; 87077; 87086; 87186; 93005; 93010; 93971; 94760; 96365; 96367; 97110; 97116; 97162; 97166; 97530; 97535; 99285-25; J0456; J0696; J1650; J2405; J7030; J7050

== ENCOUNTER 2018-11-07 07:54 | Inpatient (IN) | payer OTHER, MEDICARE ==
[~2018-11-07] VITALS: Ht 180.3 cm; Wt 68.1 kg
[~2018-11-07 07:54] MED LIST changes: +ATORVASTATIN CA40 MG PO; +AZIT250 PO; +EUTHYROX150 MCG PO; +FURO20; +METF500 PO; +ONDA4 PO; +Potassium Chlo20 ME1 PO; +XTANDI40 MG PO
[2018-11-07 08:58] LABS: BASOPHILS ABSOLUTE AUTO 0.02 K/mm3 (0.00-0.23); BASOPHILS PERCENT AUTO 1 % (0-2); EOSINOPHILS ABSOLUTE AUTO 0.04 K/mm3 (0.00-0.68); EOSINOPHILS PERCENT AUTO 2 % (0-6); Hematocrit 29.5 % (37.0-53.0); Hemoglobin 9.2 g/dL (13.5-17.5); IMMATURE GRAN ABSOLUTE AUTO 0.01 K/mm3 (0.00-0.10); IMMATURE GRAN PERCENT AUTO 0 % (0-1); LYMPHOCYTES ABSOLUTE AUTO 0.48 K/mm3 (0.84-5.20); LYMPHOCYTES PERCENT AUTO 18 % (21-46); MONOCYTES ABSOLUTE AUTO 0.28 K/mm3 (0.16-1.47); MONOCYTES PERCENT AUTO 10 % (4-13); Mean Corpuscular HGB 28.4 pg (26.0-34.0); Mean Corpuscular HGB Conc 31.2 g/dL (31.5-36.5); Mean Corpuscular Volume 91 fL (80-100); Mean Platelet Volume 9.8 fL (9.1-12.4); NEUTROPHILS ABSOLUTE AUTO 1.92 K/mm3 (1.96-9.15); NEUTROPHILS PERCENT AUTO 70 % (41-73); Platelet Count 123 K/mm3 (150-400); RDW Coefficient Variation 15.9 % (11.7-14.2); RDW Standard Deviation 53.3 fL (35.1-46.3); Red Blood Cell Count 3.24 M/mm3 (4.30-5.90); White Blood Cell Count 2.75 K/mm3 (4.00-11.30)
[2018-11-07 09:21] LABS: Anion Gap 7 mmol/L (6-16); Blood Urea Nitrogen 16 mg/dL (8-24); Bun/Creatinine Ratio 24.3 (12.0-20.0); CO2, Blood 25 mmol/L (21-32); Calcium, Blood 8.4 mg/dL (8.5-10.1); Chloride, Blood 112 mmol/L (98-108); Creatinine, Blood 0.66 mg/dL (0.60-1.20); Glomerular Filtration Rate >60 (60-); Glucose, Blood 140 mg/dL (70-99); Potassium, Blood 3.7 mmol/L (3.5-5.5); Sodium, Blood 144 mmol/L (136-145)
--- NOTE | 2018-11-07 13:25 | NUR ---
PT ARRIVED FROM ED VIA W/C. ABLE TO STAND AND TRANSFER TO BED WITH MINIMAL ASSISTANCE. PT IS A/O, UP WITH 1 ASSIST TO INDEPENDENT. HE IS STEADY ON HIS FEET WITH GOOD BALANCE. USES THE WALKER FOR "SAFETY". BED IN LOWEST POSITION AND CALL UNDERWOOD IN REACH. WILL CONTINUE TO MONITOR.
--- NOTE | 2018-11-08 04:20 | NUR ---
DEMURRAGE CLERK SUMMARY PT AAOX4 AND PLEASANT. INDEPENDENT TO THE BATHROOM WITH FWW. PT REPORTS BREATHING IMPROVED AND STATES THAT HE DOES GET SLIGHTLY SOB WITH EXERTION BUT IS COMFORTABLE IN BED. PT NOTED TO DESAT INTO 80'S WHEN SLEEPING. PLACED PT ON 2L O2 VIA NC WHILE SLEEPING. WHEN PT IS AWAKE O2 SATS REMAIN IN MID 90'S ON RA. LUNGS DIM BUT NO CRACKLES NOTED. PT HAS BEEN URINATING FREQUENTLY AFTER GETTING LASIX ON DAY SHIFT. PT DOES HAVE TROUBLE REMEMBERING TO USE URINAL WHEN VOIDING SO THAT OUTPUT CAN BE MEASURED. VSS, WILL CONTINUE TO MONITOR.
[2018-11-08 05:05] LABS: BASOPHILS ABSOLUTE AUTO 0.01 K/mm3 (0.00-0.23); BASOPHILS PERCENT AUTO 1 % (0-2); EOSINOPHILS ABSOLUTE AUTO 0.07 K/mm3 (0.00-0.68); EOSINOPHILS PERCENT AUTO 3 % (0-6); Hematocrit 28.6 % (37.0-53.0); Hemoglobin 8.8 g/dL (13.5-17.5); IMMATURE GRAN ABSOLUTE AUTO 0.01 K/mm3 (0.00-0.10); IMMATURE GRAN PERCENT AUTO 1 % (0-1); LYMPHOCYTES ABSOLUTE AUTO 0.42 K/mm3 (0.84-5.20); LYMPHOCYTES PERCENT AUTO 19 % (21-46); MONOCYTES ABSOLUTE AUTO 0.22 K/mm3 (0.16-1.47); MONOCYTES PERCENT AUTO 10 % (4-13); Mean Corpuscular HGB 28.8 pg (26.0-34.0); Mean Corpuscular HGB Conc 30.8 g/dL (31.5-36.5); Mean Corpuscular Volume 94 fL (80-100); Mean Platelet Volume 9.5 fL (9.1-12.4); NEUTROPHILS ABSOLUTE AUTO 1.45 K/mm3 (1.96-9.15); NEUTROPHILS PERCENT AUTO 66 % (41-73); Platelet Count 129 K/mm3 (150-400); RDW Standard Deviation 54.4 fL (35.1-46.3); Red Blood Cell Count 3.06 M/mm3 (4.30-5.90); White Blood Cell Count 2.18 K/mm3 (4.00-11.30)
[2018-11-08 05:35] LABS: Alanine Aminotransfer (ALT/SGP 10 U/L (12-78); Albumin/Globulin Ratio 0.9 (0.8-1.8); Alk Phos 93 U/L (50-136); Anion Gap 8 mmol/L (6-16); Aspartate Aminotrans (AST/SGOT 16 U/L (12-37); Bilirubin, Total 0.5 mg/dL (0.1-1.0); Blood Urea Nitrogen 16 mg/dL (8-24); Bun/Creatinine Ratio 20.4 (12.0-20.0); CO2, Blood 25 mmol/L (21-32); Calcium, Blood 8.2 mg/dL (8.5-10.1); Chloride, Blood 110 mmol/L (98-108); Creatinine, Blood 0.78 mg/dL (0.60-1.20); Globulin, Blood 3.2 g/dL (2.2-4.0); Glomerular Filtration Rate >60 (60-); Glucose, Blood 115 mg/dL (70-99); Magnesium, Blood 2.2 mg/dL (1.6-2.4); Potassium, Blood 3.3 mmol/L (3.5-5.5); Sodium, Blood 143 mmol/L (136-145); Total Protein, Blood 6.2 g/dL (6.4-8.2)
[2018-11-08 05:37] LABS: Percent Saturation 14.7 % (20.0-50.0)
--- NOTE | 2018-11-08 18:07 | NUR ---
SHIFT SUMMARY PT UP TO BATHROOM INDEPENDENTLY. HAS BEEN SLEEPING ON AND OFF THROUGH DAY. 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 NO RESP DISTRESS NOTED THROUGH DAY.
[2018-11-09 04:51] LABS: Hematocrit 26.4 % (37.0-53.0); Hemoglobin 8.4 g/dL (13.5-17.5); Mean Corpuscular HGB 28.2 pg (26.0-34.0); Mean Corpuscular HGB Conc 31.8 g/dL (31.5-36.5); Mean Platelet Volume 9.6 fL (9.1-12.4); Platelet Count 133 K/mm3 (150-400); RDW Coefficient Variation 15.9 % (11.7-14.2); RDW Standard Deviation 50.8 fL (35.1-46.3); Red Blood Cell Count 2.98 M/mm3 (4.30-5.90); White Blood Cell Count 2.34 K/mm3 (4.00-11.30)
[2018-11-09 04:52] LABS: Mean Corpuscular Volume 89 fL (80-100)
[2018-11-09 05:17] LABS: Anion Gap 7 mmol/L (6-16); Blood Urea Nitrogen 17 mg/dL (8-24); Bun/Creatinine Ratio 24.7 (12.0-20.0); CO2, Blood 26 mmol/L (21-32); Calcium, Blood 8.3 mg/dL (8.5-10.1); Chloride, Blood 110 mmol/L (98-108); Creatinine, Blood 0.69 mg/dL (0.60-1.20); Glomerular Filtration Rate >60 (60-); Glucose, Blood 110 mg/dL (70-99); Potassium, Blood 3.2 mmol/L (3.5-5.5); Sodium, Blood 143 mmol/L (136-145)
--- NOTE | 2018-11-09 05:37 | NUR ---
STRATEGIC CLIENT EXECUTIVE SUMMARY NO ACUTE CHANGES THIS SHIFT. PT AAOX4 AND INDEPENDENT TO BATHROOM. PT HAS NOT NEED O2 WHILE SLEEPING TONIGHT. PT REPORTS GOOD URINE OUTPUT THROUGH THE DAY. BLE EDEMA SIGNIFICANTLY IMPROVED COMPARED TO YESTERDAY. PT DENIES PAIN, N/V, SOB. VSS, WILL CONTINUE TO MONITOR.
--- NOTE | 2018-11-09 15:42 | NUR ---
Initial Visit: Palliative Care Consult Advanced Care Planning and End Stage Disease. Pt is A&OX3 and is unable to verbalize reason for hospital stay. Pt denies pain, dyspnea, nausea at this time. Pt reports experiencing dyspnea with exertion. Engaged in therapeutic conversation regarding advanced care planning. Pt reports living at home with his daughter. Pt reports receiving some assistance with in home caregivers helping with bathing, cooking, and laundry. Pt reports ambulating without any assistive devices and is able to dress himself safely. Engaged in discussion regarding CHF and Cancer. Educated on disease process including trajectory. Discussed the importance of having wishes for life sustaining meausres documented on paper. Pt's level of understanding is questionable and he reports experiencing forgetfulness. Pt is agreeable for palliative care to F/U when daughter is present. Spoke with bedside nurse Gayatri and discussed case. Called and spoke with Dr Hannah and discussed case. Pending further discussions with Pt and daughter to establish goals of care Dr Hannah is agreeable Pt would benefit from cardiac rehab once Pt has completed home health. Palliative Care will F/U when daughter is present.
--- NOTE | 2018-11-09 19:39 | NUR ---
SHIFT SUMMARY PT UP TO BATHROOM INDEPENDENTLY. LAYING IN BED WHEN NOT UP TO BATHROOM. HAS DENIED ANY PAIN. REPORTS FEELING CONSTIPATED AND SPOKE WITH MD ABOUT IT AND STARTED BOWEL CARE THIS MORNING WITH NO RESULTS YET.
--- NOTE | 2018-11-09 19:41 | NUR ---
Met with patient and his daughter. pt has mild headache today and a bit more pain. Most of his discomfort is from his constipation. He does not any interest in food and feels more anxious. Review of his symptoms with daughter present so could expalin coorelation to diagnosis. Care ful conversation on prognosis daughter states [facility] team have mentioned transtion to hospice. He just started recieving caregiver help and will request home haseeb team from [place]. Will update [place] palliative care team. Will process polst and send copy to [place] and registry and give copy to daughter. Pt dose not have a will or POA. Advised daughter on completion of documents will give her POA form.
[2018-11-10 05:02] LABS: Hemoglobin 8.6 g/dL (13.5-17.5); Mean Corpuscular HGB 28.6 pg (26.0-34.0); Mean Corpuscular HGB Conc 31.9 g/dL (31.5-36.5); Mean Corpuscular Volume 90 fL (80-100); Mean Platelet Volume 9.7 fL (9.1-12.4); Platelet Count 136 K/mm3 (150-400); RDW Coefficient Variation 15.8 % (11.7-14.2); RDW Standard Deviation 51.5 fL (35.1-46.3); Red Blood Cell Count 3.01 M/mm3 (4.30-5.90); White Blood Cell Count 2.31 K/mm3 (4.00-11.30)
[2018-11-10 05:42] LABS: Anion Gap 6 mmol/L (6-16); Blood Urea Nitrogen 19 mg/dL (8-24); Bun/Creatinine Ratio 25.5 (12.0-20.0); CO2, Blood 27 mmol/L (21-32); Calcium, Blood 8.4 mg/dL (8.5-10.1); Chloride, Blood 109 mmol/L (98-108); Creatinine, Blood 0.75 mg/dL (0.60-1.20); Glomerular Filtration Rate >60 (60-); Glucose, Blood 114 mg/dL (70-99); Potassium, Blood 3.6 mmol/L (3.5-5.5); Sodium, Blood 142 mmol/L (136-145)
--- NOTE | 2018-11-10 06:06 | NUR ---
Shift Summary Pt appeared to sleep through most of the noc. Ambulated independently to commode with no SOB. Refused SCDS when offered. Bowel meds given as ordered with no reported effect. Denies pain. VSS. Remained on RA. No acute changes this shift.
--- NOTE | 2018-11-10 09:34 | NUR ---
Pt resting in bed and reports mild discomfort due to bowels not moving. Pt is agreeable with plan to discharge once he has a BM. No other concerns reported at this time. Spoke with Dr Hannah and discussed case. Dr Hannah signs completed POLST. Spoke with bedside nurse Vida and discussed case. Place POLST in Pt's belongings bag. Vida reports if Pt discharges today she will make sure his daughter is aware of POLST in bag and to place on refrigerator. Faxed copies of POLST to [facility] Records and [place] Medical Records. Palliative Care will remain available.
--- NOTE | 2018-11-10 17:13 | NUR ---
SHIFT SUMMARY PT UP TO BATHROOM INDEPENDENTLY. REQUIRED A DIGITAL IMPACTION REMOVED. LARGE HARD STOOL REMOVED AFTER SUPPOSITORY GIVEN. WAS ABLE TO HAVE A MEDIUM HARD BM SEVERAL HOURS LATER ON HIS OWN AND STATED HE FINALLY FELT HE WAS DONE. NO RESP DISTRESS NOTED THROUGH DAY.
--- NOTE | 2018-11-10 18:11 | NUR ---
TOOK OVER CARE OF PATIENT FROM REINA. PT UP TO BATHROOM. DENIES NEED FOR ANYTHING ELSE AT THIS TIME. NO APPARENT SIGNS OF DISTRESS. CALL LIGHT/CORD IS IN REACH.
--- NOTE | 2018-11-11 05:23 | NUR ---
SHIFT SUMMARY: Pt reports right lower quadrant abdominal discomfort with palpation due to what he thinks to be either continued constipation or soreness after digital removal of impation on 11/10. Grimacing and quiet moaning with movement- reports general discomfort. States this is chronic, but is willing to try PRN tylenol. Appeared to sleep through the night after tylenol administered. Slight non-pitting edema noted in all fingers bilaterally. Slight non-pitting edema in bilateral lower extremities- LLE more swollen than right. Call light within reach. No acute changes in condition.
[2018-11-11] MEDS ORDERED: FURO40 PO (12:33)
[2018-11-11] MEDS ORDERED: SPIR25 PO (12:34)
[2018-11-11] MEDS ORDERED: LISI5 PO (12:37)
[2018-11-11] MEDS ORDERED: MIRALAX17 GM PO (12:38)
--- NOTE | 2018-11-11 13:41 | NUR ---
DISCHARGE NOTE IV REMOVED WNL. MEDICATIONS FAXED TO PREFERED PHARMACY. PT PROVIDED WITH HARDCOPY AND VERBAL INSTRUCTIONS FOR DISCHARGE RE: FOLLOW UP APPOINTMENTS, MEDICATIONS, AND DIAGNOSES. PT HAD NO FURTHER QUESTIONS. TELEMETRY REMOVED. FAMILY CALLED AND INFORMED OF DISCHARGE. FAMILY ARRIVED AND ESCORTED THE PT TO PRIVATE VEHICLE VIA WHEELCHAIR. PERSONAL POSSESSIONS GATHERED AND PROVIDED TO PT. PT DRESSED IN PERSONAL CLOTHING
== END 2018-11-11 13:42 | disposition home health service (06) | DRG 292 ==
LOC: ER 07:54 → MEDS 08:55 → ENPENDDIS 11-11 11:53 → MEDS 11-11 13:42
PROVIDERS: Emergency Medicine; Internal Medicine; ADMIT Internal Medicine
DX: I11.0 Hypertensive heart disease with heart failure (principal); D61.818 Other pancytopenia; I50.23 Acute on chronic systolic (congestive) heart failure; D63.8 Anemia in other chronic diseases classified elsewhere; Z66 Do not resuscitate; E87.6 Hypokalemia; E11.9 Type 2 diabetes mellitus without complications; C61 Malignant neoplasm of prostate; Z74.09 Other reduced mobility; Z51.5 Encounter for palliative care; J44.9 Chronic obstructive pulmonary disease, unspecified; E78.5 Hyperlipidemia, unspecified; E03.9 Hypothyroidism, unspecified; Z86.718 Personal history of other venous thrombosis and embolism; Z95.5 Presence of coronary angioplasty implant and graft; Z87.891 Personal history of nicotine dependence
CPT/HCPCS: 36415; 71046; 80048; 80053; 82607; 82728; 82746; 83540; 83550; 83735; 83880; 84145; 85025; 85027; 87081; 93005; 93010; 93306; 94760; 94762; 96372; 96374; 96375; 96376; 97110; 97162; 97530; 99285-25; A9270; G0378; J1650; J1940; J2405

== ENCOUNTER → 2018-12-01 | Outpatient (CLI) | payer MEDICARE, OTHER ==
[~2018-12-01] MED LIST changes: +LISI5 PO; +MIRALAX17 GM PO
== END | disposition home or self-care (01) ==
LOC: LAB SHORT 14:07 → PLD 14:07
DX: D49.2 Neoplasm of unspecified behavior of bone, soft tissue, and skin (principal)
CPT/HCPCS: 88305

== ENCOUNTER 2019-02-26 13:28 | Emergency (ER) | payer MEDICARE, OTHER ==
[~2019-02-26] VITALS: Ht 182.9 cm; Wt 65.3 kg
[2019-02-26 13:51] LABS: BASOPHILS ABSOLUTE AUTO 0.01 K/mm3 (0.00-0.23); BASOPHILS PERCENT AUTO 0 % (0-2); EOSINOPHILS ABSOLUTE AUTO 0.05 K/mm3 (0.00-0.68); EOSINOPHILS PERCENT AUTO 2 % (0-6); Hematocrit 26.7 % (37.0-53.0); Hemoglobin 8.5 g/dL (13.5-17.5); IMMATURE GRAN ABSOLUTE AUTO 0.02 K/mm3 (0.00-0.10); IMMATURE GRAN PERCENT AUTO 1 % (0-1); LYMPHOCYTES ABSOLUTE AUTO 0.52 K/mm3 (0.84-5.20); LYMPHOCYTES PERCENT AUTO 18 % (21-46); MONOCYTES ABSOLUTE AUTO 0.29 K/mm3 (0.16-1.47); MONOCYTES PERCENT AUTO 10 % (4-13); Mean Corpuscular HGB 29.8 pg (26.0-34.0); Mean Corpuscular HGB Conc 31.8 g/dL (31.5-36.5); Mean Corpuscular Volume 94 fL (80-100); Mean Platelet Volume 9.5 fL (9.1-12.4); NEUTROPHILS ABSOLUTE AUTO 2.07 K/mm3 (1.96-9.15); NEUTROPHILS PERCENT AUTO 70 % (41-73); Platelet Count 152 K/mm3 (150-400); RDW Coefficient Variation 15.5 % (11.7-14.2); RDW Standard Deviation 53.5 fL (35.1-46.3); Red Blood Cell Count 2.85 M/mm3 (4.30-5.90); White Blood Cell Count 2.96 K/mm3 (4.00-11.30)
[2019-02-26 14:09] LABS: Alanine Aminotransfer (ALT/SGP 10 U/L (12-78); Albumin/Globulin Ratio 0.8 (0.8-1.8); Alk Phos 171 U/L (50-136); Anion Gap 8 mmol/L (6-16); Aspartate Aminotrans (AST/SGOT 27 U/L (12-37); Bilirubin, Total 0.3 mg/dL (0.1-1.0); Blood Urea Nitrogen 24 mg/dL (8-24); Bun/Creatinine Ratio 26.1 (12.0-20.0); CO2, Blood 28 mmol/L (21-32); Calcium, Blood 9.9 mg/dL (8.5-10.1); Chloride, Blood 107 mmol/L (98-108); Creatinine, Blood 0.92 mg/dL (0.60-1.20); Globulin, Blood 3.8 g/dL (2.2-4.0); Glomerular Filtration Rate >60 (60-); Glucose, Blood 138 mg/dL (70-99); Potassium, Blood 3.7 mmol/L (3.5-5.5); Sodium, Blood 143 mmol/L (136-145); Total Protein, Blood 6.8 g/dL (6.4-8.2)
[2019-02-26 16:27] LABS: Source, Urine Clean Catch
[2019-02-26 16:31] LABS: Bilirubin, Urine Neg (Neg); Blood, Urine Neg (Neg); Glucose Qualitative, Urine Neg (Neg); Ketones, Urine 1+ (Neg); Leukocyte Esterase, Urine 1+ (Neg); Nitrite, Urine Neg (Neg); Protein, Urine 1+ (Neg); Urobilinogen, Urine NORM (Normal)
[2019-02-26 16:36] LABS: Appearance, Urine Clear (Clear); Color, Urine Yellow (P-Yellow)
[2019-02-26 16:53] LABS: Amorphous Light (0-Heavy); Bacteria Mod /hpf; Calcium Oxalate Crystals Few /hpf; Hyaline Casts 0-2 /lpf (0-2); Mucus Light (0-Heavy); Red Blood Cells, Urine 0-2 /hpf (0-2); Squamous Epithelial Cells Mod /hpf (Few); White Blood Cells, Urine 0-2 /hpf (0-5)
[2019-02-26] MEDS ORDERED: Dulcolax5 MG PR (17:22)
[2019-02-26] MEDS ORDERED: Magnesium Citr296 ML PO (17:22)
[2019-02-26] MEDS ORDERED: METFORMIN HCL500 M3 PO (21:32)
[2019-02-26] MEDS ORDERED: ATOR20 PO (21:33)
== END 2019-02-26 15:00 | disposition home or self-care (01) ==
LOC: ER 13:28
PROVIDERS: Emergency Medicine
DX: R55 Syncope and collapse (principal); K59.00 Constipation, unspecified; I10 Essential (primary) hypertension; C61 Malignant neoplasm of prostate; C79.51 Secondary malignant neoplasm of bone; Z79.899 Other long term (current) drug therapy; Z87.891 Personal history of nicotine dependence
CPT/HCPCS: 70450; 71046; 73030; 74177; 80053; 81001; 85025; 87077; 87086; 87186; 93005; 93010; 99285-25; Q9967

== ENCOUNTER 2019-03-13 04:37 | Emergency (ER) | payer OTHER, MEDICARE ==
[~2019-03-13] VITALS: Ht 180.3 cm; Wt 60.3 kg
[~2019-03-13 04:37] MED LIST changes: +ATOR20 PO; +Dulcolax5 MG PR; +METFORMIN HCL500 M3 PO; +Magnesium Citr296 ML PO
[2019-03-13 05:24] LABS: BASOPHILS ABSOLUTE AUTO 0.01 K/mm3 (0.00-0.23); BASOPHILS PERCENT AUTO 0 % (0-2); EOSINOPHILS ABSOLUTE AUTO 0.04 K/mm3 (0.00-0.68); EOSINOPHILS PERCENT AUTO 1 % (0-6); Hematocrit 27.6 % (37.0-53.0); Hemoglobin 8.9 g/dL (13.5-17.5); IMMATURE GRAN ABSOLUTE AUTO 0.08 K/mm3 (0.00-0.10); IMMATURE GRAN PERCENT AUTO 3 % (0-1); LYMPHOCYTES ABSOLUTE AUTO 0.52 K/mm3 (0.84-5.20); LYMPHOCYTES PERCENT AUTO 17 % (21-46); MONOCYTES ABSOLUTE AUTO 0.23 K/mm3 (0.16-1.47); MONOCYTES PERCENT AUTO 8 % (4-13); Mean Corpuscular HGB 29.7 pg (26.0-34.0); Mean Corpuscular HGB Conc 32.2 g/dL (31.5-36.5); Mean Corpuscular Volume 92 fL (80-100); Mean Platelet Volume 8.9 fL (9.1-12.4); NEUTROPHILS PERCENT AUTO 71 % (41-73); Platelet Count 183 K/mm3 (150-400); RDW Coefficient Variation 15.2 % (11.7-14.2); RDW Standard Deviation 50.7 fL (35.1-46.3); White Blood Cell Count 3.08 K/mm3 (4.00-11.30)
[2019-03-13 05:40] LABS: Alanine Aminotransfer (ALT/SGP 11 U/L (12-78); Albumin, Blood 3.1 g/dL (3.4-5.0); Albumin/Globulin Ratio 0.7 (0.8-1.8); Alk Phos 209 U/L (50-136); Anion Gap 10 mmol/L (6-16); Aspartate Aminotrans (AST/SGOT 33 U/L (12-37); Bilirubin, Total 0.4 mg/dL (0.1-1.0); Blood Urea Nitrogen 30 mg/dL (8-24); Bun/Creatinine Ratio 34.5 (12.0-20.0); CO2, Blood 24 mmol/L (21-32); Calcium, Blood 10.5 mg/dL (8.5-10.1); Chloride, Blood 108 mmol/L (98-108); Creatinine, Blood 0.87 mg/dL (0.60-1.20); Globulin, Blood 4.3 g/dL (2.2-4.0); Glomerular Filtration Rate >60 (60-); Glucose, Blood 90 mg/dL (70-99); Potassium, Blood 3.6 mmol/L (3.5-5.5); Sodium, Blood 142 mmol/L (136-145); Total Protein, Blood 7.4 g/dL (6.4-8.2); Troponin I <0.015 ng/mL (0.000-0.040)
[2019-03-13 07:12] LABS: Source, Urine Catheter
[2019-03-13 07:15] LABS: Bilirubin, Urine Neg (Neg); Blood, Urine Neg (Neg); Glucose Qualitative, Urine Neg (Neg); Ketones, Urine 3+ (Neg); Leukocyte Esterase, Urine Neg (Neg); Nitrite, Urine Neg (Neg); Protein, Urine 1+ (Neg); Specific Gravity, Urine 1.025 (1.003-1.022); Urobilinogen, Urine NORM (Normal)
[2019-03-13 07:23] LABS: Appearance, Urine Clear (Clear); Color, Urine Yellow (P-Yellow)
[2019-03-13] MEDS ORDERED: Zofran4 MG PO (08:14)
== END 2019-03-13 09:06 | disposition home or self-care (01) ==
LOC: ER 04:37
PROVIDERS: Emergency Medicine
DX: E86.0 Dehydration (principal); C61 Malignant neoplasm of prostate; C79.51 Secondary malignant neoplasm of bone; D70.9 Neutropenia, unspecified; D64.9 Anemia, unspecified; I10 Essential (primary) hypertension; I25.2 Old myocardial infarction; Z79.899 Other long term (current) drug therapy; Z79.84 Long term (current) use of oral hypoglycemic drugs; Z87.891 Personal history of nicotine dependence
CPT/HCPCS: 36415; 71046; 80053; 84484; 85025; 93005; 93010; 96360; 96361; 99284-25; J7030